=== PATIENT | female | born 1950 | race Two or more races ===

== ENCOUNTER 2025-08-17 10:53 | Emergency (ER) | payer MEDICARE, SELFPAY ==
[2025-08-17 10:56] VITALS: BP 183/74; PULSE 50; TEMP 37.1; O2SAT 100; BMI 24.6
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
[2025-08-17] MEDS: IBUPROFEN 600 MG TABLET PO (11:50)
[2025-08-17] MEDS: HYDROCODONE/ACET 5-325 MG TABLET 1 TAB PO (13:47)
[2025-08-17 13:58] VITALS: BP 160/74; PULSE 57; O2SAT 98
== END 2025-08-17 14:21 | disposition home or self-care (01) ==
PROVIDERS: Emergency Provider Emergency Medicine
DX: S16.1XXA Strain of muscle, fascia and tendon at neck level, initial encounter (principal); S82.002A Unspecified fracture of left patella, initial encounter for closed fracture; V44.6XXA Car passenger injured in collision with heavy transport vehicle or bus in traffic accident, initial encounter
CPT/HCPCS: 72125; 73564; 76376; 99284